=== PATIENT | female | born 1955 | race Caucasian/White ===

== ENCOUNTER 2021-03-04 21:57 | Observation (INO) ==
[2021-03-04] MEDS ORDERED: LORazepam 2 MG/ML VIAL IV ONE (22:12)
[2021-03-04] MEDS ORDERED: ONDANSETRON 4 MG/2 ML VIAL IV ONE (22:21)
--- NOTE | 2021-03-04 22:23 | Emergency Department Note ---
HPI General Chief complaint: Seizure Stated complaint: seizure Time Seen by Provider: 03/04/21 22:06 Source: EMS Mode of arrival: ambulatory Limitations: no limitations History of Present Illness HPI Narrative: Narrative: Patient presents emergency department for evaluation of seizure-like activity. Family reported to EMS that the patient had 5 minutes of seizure-like activity. There is no further description provided by EMS. She appeared postictal on EMS arrival. On arrival here she is complaining of nausea . She does not remember what happened. I do not see prior history of seizure in her electronic medical record. Recently quit smoking. No other complaints. Related Data Home Medications Medication Instructions Recorded Confirmed furosemide 20 mg tablet 20 mg PO QDAY 11/11/20 03/05/21 oxybutynin chloride 5 mg tablet 5 mg PO BID 11/11/20 03/05/21 omeprazole 40 mg capsule,delayed 40 mg PO QDAY 12/20/20 03/05/21 release potassium chloride 10 mEq 10 meq PO QDAY 12/20/20 03/05/21 capsule,extended release aripiprazole 10 mg PO QDAY 03/05/21 03/05/21 duloxetine 60 mg PO BID 03/05/21 03/05/21 oxcarbazepine 300 mg PO BID 03/05/21 03/05/21 torsemide 10 mg PO DAILY 03/05/21 03/05/21 Previous Rx's Medication Instructions Recorded trazodone 150 mg tablet See Rx Instructions .ROUTE 12/20/20 .COMPLEX #1 tab oxcarbazepine 300 mg tablet 300 mg PO BID #60 tab 02/22/21 Allergies Allergy/AdvReac Type Severity Reaction Status Date / Time codeine Allergy Intermediate Itching Verified 03/04/21 22:05 Donepezil Allergy Unknown Unknown Verified 03/04/21 22:05 Sulfa (Sulfonamide AdvReac Intermediate Nausea Verified 03/04/21 22:05 Antibiotics) tape AdvReac Mild Itching Uncoded 11/29/20 13:03 Review of Systems ROS ROS Narrative: Narrative: As above, all other systems reviewed and negative. PFSH Narrative Patient History Narrative: Narrative: Reviewed Medical/Surgical/Family History All Active Problems (Updated 03/05/21 @ 00:45 by Demetrius Hickman MD) Mitral valve prolapse (Chronic) Gastroenteritis (Chronic) Acute vestibular neuronitis (Chronic) Gastroenteritis (Chronic) Acute hypokalemia (Chronic) Fibromyalgia (Chronic) Diverticulitis (Chronic) GERD (gastroesophageal reflux disease) (Chronic) Neck pain (Chronic) Back pain (Chronic) Dementia (Chronic) PNA (pneumonia) (Chronic) Hypercholesterolemia (Chronic) Hypokalemia (Chronic) PTSD (post-traumatic stress disorder) (Chronic) Depressive disorder (Chronic) Migraine (Chronic) Hypertensive disorder (Chronic) Gastric ulcer (Chronic) Joint pain (Chronic) Chronic back pain (Chronic) Vertigo (Chronic) Forgetfulness (Chronic) Chronically ill (Chronic) Depression with anxiety (Chronic) High risk medication use (Chronic) Abnormal mammogram (Chronic) Cervical radiculopathy (Chronic) Alcohol use disorder, mild, in sustained remission, abuse (Acute) Generalized anxiety disorder (Acute) Major depression, recurrent, chronic (Acute) Tobacco use disorder (Acute) Cannabis use disorder, moderate, dependence (Acute) Mood disorder (Acute) Sedative hypnotic or anxiolytic dependence (Acute) PTSD (post-traumatic stress disorder) (Acute) Dawson's esophagus (Acute) Observed seizure-like activity (Acute) Acute hypokalemia (Acute) Acute hyponatremia (Acute) Medical History Abnormal mammogram Acute hypokalemia Acute vestibular neuronitis Addiction Back pain Cervical radiculopathy Chronic back pain Chronically ill Dementia Depression with anxiety Depressive disorder Diverticulitis Fibromyalgia Forgetfulness Gastric ulcer Gastroenteritis Gastroenteritis GERD (gastroesophageal reflux disease) High risk medication use Hypercholesterolemia Hypertensive disorder Hypokalemia Joint pain Migraine Mitral valve prolapse Neck pain PNA (pneumonia) PTSD (post-traumatic stress disorder) Substance abuse Vertigo Surgical History History of cholecystectomy History of tonsillectomy and adenoidectomy Family History Sister Dementia Alcohol abuse Drug abuse Father Arthritis Lymphoma Alcohol abuse Drug abuse Mother Arthritis Alcohol abuse Drug abuse Other Cancer Social History Smoking Status: Former smoker Alcohol Intake Frequency: holiday/special occasion only Substance Use: former substance user and marijuana Exam Narrative Narrative: Narrative: General Limitations: no limitations Head Head: Present atraumatic and normocephalic Eye Eye: Present normal appearance, PERRL and EOMI ENT ENT: Present normal exam and other (Does look like she bit her tongue superficially left anterior.) Neck Neck: Present normal inspection Respiratory Respiratory: Absent respiratory distress Extremities Extremities: Present normal inspection Neurological Neurological: Present alert, oriented X3 and CN II-XII intact; Absent motor sensory deficit Psychiatric Psychiatric: Present normal affect Skin Skin: Present warm (WNL) and dry Course Vital Signs Vital signs: Vital Signs Temperature 98.0 F 03/04/21 21:58 Pulse Rate 102 H 03/04/21 21:58 Respiratory Rate 25 H 03/04/21 21:58 Blood Pressure 147/84 03/04/21 21:58 Pulse Oximetry (%) 99 03/04/21 21:58 Temperature 98.0 F 03/04/21 21:58 Pulse Rate 84 03/05/21 01:00 Respiratory Rate 23 H 03/05/21 01:00 Blood Pressure 128/74 03/05/21 01:00 Pulse Oximetry (%) 97 03/05/21 01:00 [facility] MDM Narrative Medical decision making narrative: Narrative:Patient's family later came to the emergency department and report 5-minute episode of witnessed generalized tonic- clonic activity with postictal appearance afterwards. They confirm that the patient has had no prior seizure history. Patient is more awake and alert now and she reports that right after she had seizures as an but no adult seizures. She complained of neck pain she states she has arthritis in her neck and requested medication for this and she is given Tylenol. She was medicated with Ativan. CT brain is read by radiology showed no acute pathology. Patient is given potassium. I spoke with the on-call hospitalist. Case reviewed in detail over phone. Hospitalist would like the patient placed on normal saline 100 mL an hour. She received a 500 mL fluid bolus in the emergency department. Hospitalist would also like the patient to receive 40 M EQ's potassium IV and 40 M EQ's orally. Discussed findings with the patient and significant other. Their questions were answered. They are agreeable with the plan. Lab Data Result diagrams: 03/04/21 22:27 03/04/21 22:27 Labs: Lab Results 03/04/21 03/04/21 03/04/21 Range/Units 22:27 22:27 22:32 WBC 10.5 (4.5-11.0) K/mcL RBC 4.43 (4.00-5.20) M/mcL Hgb 13.5 (12.0-15.0) g/dL Hct 36.7 (36.0-48.0) % MCV 82.8 (80.0-100.0) fL MCH 30.5 (26.0-34.0) pg MCHC 36.8 H (31.0-36.0) g/dL RDW 13.0 (11.5-14.5) % Plt Count 445 H (140-440) K/mcL MPV 9.3 (7.4-10.4) fL Neut % (Auto) 74.0 (38.0-78.0) % Lymph % (Auto) 15.5 (15.0-49.0) % [place] % (Auto) 10.0 (1.0-12.0) % Eos % (Auto) 0.1 (0.0-7.0) % Baso % (Auto) 0.4 (0.0-2.0) % Lymph # (Auto) 1.62 (1.50-4.80) K/mcL [place] # (Auto) 1.05 H (0.10-0.90) K/mcL Eos # (Auto) 0.01 (0.00-0.70) K/mcL Baso # (Auto) 0.04 (0.00-0.20) K/mcL Absolute Neutrophils 7.73 (1.80-8.00) K/mcL Sodium 116 L* (133-145) mmol/L Potassium 2.4 L* (3.3-5.1) mmol/L Chloride 73 L (96-108) mmol/L Carbon Dioxide 18 L (22-30) mmol/L Anion Gap 25.0 H (8.0-16.0) BUN 5 L (8-23) mg/dL Creatinine 0.9 (0.6-1.1) mg/dL GFR Calculation 68 Glucose 169 H (70-105) mg/dL Calcium 9.8 (8.6-10.4) mg/dL Total Bilirubin 0.4 (0.1-1.0) mg/dL AST 16 (<32) U/L ALT 19 (<40) U/L Alkaline Phosphatase 69 (39-117) U/L Total Protein 7.1 (5.9-8.4) gm/dL Albumin 4.5 (3.2-5.2) gm/dL Globulin 2.6 (2.2-3.7) gm/dL Albumin/Globulin Ratio 1.7 (1.0-2.3) Prolactin 10.3 (4.8-23.3) ng/mL Ethyl Alcohol < 0.010 (<0.010) gm/dL ED POC Tests ED POC Tests: RYANN - SARS Antigen Negative Discharge Plan Patient/Caregiver Discharge Instructions Pt seen by PURCHASING SPECIALIST/PA only: No Clinical Impression: Observed seizure-like activity, Acute hypokalemia, Acute hyponatremia Patient Disposition: Xfer As Inpt ([facility]) Condition: Undetermined Follow up with: Humberto Dalton MD [Primary Care Provider] - Prescriptions: No Action omeprazole 40 mg capsule,delayed release(DR/EC) 40 mg PO QDAY RF: 0 potassium chloride 10 mEq capsule, extended release 10 meq PO QDAY RF: 0 trazodone 150 mg tablet See Rx Instructions .ROUTE .COMPLEX Qty: 1 RF: 0 oxcarbazepine [Trileptal] 300 mg tablet 300 mg PO BID Qty: 60 RF: 0 furosemide 20 mg tablet 20 mg PO QDAY RF: 0 oxybutynin chloride 5 mg tablet 5 mg PO BID RF: 0 torsemide 10 mg PO DAILY RF: 0 duloxetine 60 mg capsule,delayed release(DR/EC) 60 mg PO BID RF: 0 oxcarbazepine 300 mg Tablet 300 mg PO BID RF: 0 aripiprazole 10 mg Tablet 10 mg PO QDAY RF: 0
[2021-03-04] MEDS ORDERED: ONDANSETRON 4 MG/2 ML VIAL ONE (22:25)
[2021-03-04] MEDS ORDERED: ACETAMINOPHEN 1,000 MG/100 ML BAG IV ONE (23:06)
[2021-03-04 23:27] LABS: Basophils # (Auto) 0.04 K/mcL (0.00-0.20); Basophils % (Auto) 0.4 % (0.0-2.0); Eosinophils # (Auto) 0.01 K/mcL (0.00-0.70); Eosinophils % (Auto) 0.1 % (0.0-7.0); Hematocrit 36.7 % (36.0-48.0); Hemoglobin 13.5 g/dL (12.0-15.0); Lymphocytes # (Auto) 1.62 K/mcL (1.50-4.80); Lymphocytes % (Auto) 15.5 % (15.0-49.0); Mean Cell Volume 82.8 fL (80.0-100.0); Mean Corpuscular HGB Conc 36.8 g/dL (31.0-36.0); Mean Platelet Volume 9.3 fL (7.4-10.4); Monocytes # (Auto) 1.05 K/mcL (0.10-0.90); Platelet Count 445 K/mcL (140-440); RBC 4.43 M/mcL (4.00-5.20); WBC 10.5 K/mcL (4.5-11.0)
[2021-03-04 23:51] LABS: Alcohol, Blood < 10.0 mg/dL; Alcohol,Blood < 0.010 gm/dL (<0.010)
[2021-03-04 23:57] LABS: Prolactin 10.3 ng/mL (4.8-23.3)
[2021-03-05 00:08] LABS: ALT/SGPT 19 U/L (<40); AST/SGOT 16 U/L (<32); Albumin 4.5 gm/dL (3.2-5.2); Albumin/Globulin Ratio 1.7 (1.0-2.3); Alkaline Phosphatase 69 U/L (39-117); Bilirubin,Total 0.4 mg/dL (0.1-1.0); Blood Urea Nitrogen 5 mg/dL (8-23); Calcium 9.8 mg/dL (8.6-10.4); Carbon Dioxide 18 mmol/L (22-30); Chloride 73 mmol/L (96-108); Globulin 2.6 gm/dL (2.2-3.7); Glomerular Filtration Rate 68; Glucose 169 mg/dL (70-105)
[2021-03-05] MEDS ORDERED: POTASSIUM CHLORIDE 20 MEQ in DEXTROSE 5% IN WATER 250 ML IV ONE ×2 (00:11→00:45)
[2021-03-05] MEDS ORDERED: 0.9 % SODIUM CHLORIDE 500 ML IV ONE (00:11)
[2021-03-05] MEDS ORDERED: ACETAMINOPHEN 650 MG/65 ML BAG IV PRN (00:35)
[2021-03-05] MEDS ORDERED: ONDANSETRON 4 MG/2 ML VIAL IV PRN ×2 (00:37→09:42)
[2021-03-05] MEDS ORDERED: POTASSIUM CHLORIDE 20 MEQ PACKET PO ONE (00:45)
[2021-03-05] MEDS ORDERED: 0.9 % SODIUM CHLORIDE 1,000 ML IV SCH ×2 (00:45→01:00)
[2021-03-05] MEDS ORDERED: POTASSIUM CHLORIDE 20 MEQ TABLET PO ONE (00:48)
[2021-03-05] MEDS ORDERED: NICOTINE 14 MG PATCH TOPICAL ONE (00:59)
[2021-03-05] MEDS ORDERED: POTASSIUM CHLORIDE 20 MEQ/10 ML VIAL IV ONE ×2 (02:57→02:58)
[2021-03-05 03:20] LABS: Amphetamine Screen,Urine None detected; Barbiturate Screen,Urine None detected; Benzodiazepines Screen,Urine None detected; Cannabinoid Screen,Urine Suspect Positive; Cocaine Screen,Urine None detected; Opiate Screen,Urine None detected; Oxycodone, Urine Screen None detected; Phencyclidine Screen,Urine None detected
--- NOTE | 2021-03-05 05:38 | Cat Scan Report ---
CLINICAL INFORMATION: Seizure COMPARISON: None. TECHNIQUE: 2.5 mm helical slices were obtained in the skull base to vertex. Following reconstruction, axial reformatted images were reviewed at bone and parenchymal windows. The exam was performed using radiation dose optimization techniques including, but not limited to, automated exposure control, adjustment of the mA and/or kV according to patient size and use of iterative reconstruction technique. FINDINGS: The ventricles, sulci, fissures, and cisterns are symmetrically enlarged compatible with mild atrophy - slightly more than expected for age. No extra-axial fluid collection appreciated. A group of clumped calcifications in the lentiform nuclei region bilaterally are almost certainly physiologic. Mild chronic ischemic changes in the deep cerebral white matter slightly more than expected for age.. No intracerebral hemorrhage, mass effect or edema. Bone windows show no osseous abnormality. IMPRESSION: Mild atrophy with chronic ischemic changes in the cerebral white matter slightly more than typically seen in this age group. Physiologic calcification of basal ganglia regions bilaterally. No intracerebral hemorrhage or other acute finding. Interpreted and Authenticated by: Deep Ramirez 03/05/21
[2021-03-05 06:47] LABS: Basophils # (Auto) 0.03 K/mcL (0.00-0.20); Basophils % (Auto) 0.3 % (0.0-2.0); Eosinophils # (Auto) 0.02 K/mcL (0.00-0.70); Eosinophils % (Auto) 0.2 % (0.0-7.0); Hematocrit 35.4 % (36.0-48.0); Hemoglobin 12.4 g/dL (12.0-15.0); Lymphocytes # (Auto) 2.21 K/mcL (1.50-4.80); Lymphocytes % (Auto) 19.4 % (15.0-49.0); Mean Cell Volume 83.9 fL (80.0-100.0); Mean Platelet Volume 9.1 fL (7.4-10.4); Monocytes # (Auto) 1.15 K/mcL (0.10-0.90); Monocytes % (Auto) 10.1 % (1.0-12.0); Platelet Count 390 K/mcL (140-440); RBC 4.22 M/mcL (4.00-5.20); WBC 11.4 K/mcL (4.5-11.0)
[2021-03-05 07:31] LABS: ALT/SGPT 17 U/L (<40); AST/SGOT 16 U/L (<32); Albumin 3.9 gm/dL (3.2-5.2); Albumin/Globulin Ratio 1.8 (1.0-2.3); Alkaline Phosphatase 62 U/L (39-117); Bilirubin,Direct < 0.2 mg/dL (0-0.3); Bilirubin,Total 0.3 mg/dL (0.1-1.0); Blood Urea Nitrogen 4 mg/dL (8-23); Calcium 8.5 mg/dL (8.6-10.4); Carbon Dioxide 27 mmol/L (22-30); Chloride 85 mmol/L (96-108); Globulin 2.2 gm/dL (2.2-3.7); Glomerular Filtration Rate 102; Glucose 91 mg/dL (70-105); Lactate Dehydrogenase 216 U/L (135-225); Phosphorous 2.9 mg/dL (2.5-4.5); Triglycerides 95 mg/dL (<150)
[2021-03-05] MEDS ORDERED: ONDANSETRON 4 MG ODT TABLET SL PRN (09:42)
[2021-03-05] MEDS ORDERED: ZOLPIDEM 5 MG TABLET PO PRN (09:42)
--- NOTE | 2021-03-05 09:46 | Internal Med History&Physical ---
HPI History of Present Illness Patient information: Note initiated : 03/05/21 at 9:46 am Service Date, if different from initiated Date: Patient: Luz Jara 65 y/o F admitted on 03/05/21 for seizure. Chief Complaint: Seizure activity History of present illness: Ms. Jara is a 65 year old female brought to emergency room for evaluation of seizure activity which was witnessed by her family members. Patient denies seizure disorder however she is on gabapentin and oxcarbazepine. She said she ran out of gabapentin. Yesterday afternoon patient had shakiness of the body and what seems to be interpreted by her family member at seizure like activities. Family reported to EMS that the patient had 5 minutes of seizure-like activity. There is no further description provided by EMS. She appeared postictal on EMS arrival. In the emergency room patient was awake alert oriented x3 and complaining of nausea. She denies a history of seizure disorder. Patient drinks once a month and 12 drinks each time. Her last drink was 2 weeks ago. In emergency room she found to have sodium of 116 and potassium of 2.8. She denies nausea vomiting diarrhea. She is on diuretics. Review of Systems All systems: reviewed and no additional remarkable complaints except as stated Review of systems: Except as documented all systems reviewed and negative PFSH PFSH All Active Problems Mitral valve prolapse (Chronic) Gastroenteritis (Chronic) Acute vestibular neuronitis (Chronic) Gastroenteritis (Chronic) Acute hypokalemia (Chronic) Fibromyalgia (Chronic) Diverticulitis (Chronic) GERD (gastroesophageal reflux disease) (Chronic) Neck pain (Chronic) Back pain (Chronic) Dementia (Chronic) PNA (pneumonia) (Chronic) Hypercholesterolemia (Chronic) Hypokalemia (Chronic) PTSD (post-traumatic stress disorder) (Chronic) Depressive disorder (Chronic) Migraine (Chronic) Hypertensive disorder (Chronic) Gastric ulcer (Chronic) Joint pain (Chronic) Chronic back pain (Chronic) Vertigo (Chronic) Forgetfulness (Chronic) Chronically ill (Chronic) Depression with anxiety (Chronic) High risk medication use (Chronic) Abnormal mammogram (Chronic) Cervical radiculopathy (Chronic) Alcohol use disorder, mild, in sustained remission, abuse (Acute) Generalized anxiety disorder (Acute) Major depression, recurrent, chronic (Acute) Tobacco use disorder (Acute) Cannabis use disorder, moderate, dependence (Acute) Mood disorder (Acute) Sedative hypnotic or anxiolytic dependence (Acute) PTSD (post-traumatic stress disorder) (Acute) Dawson's esophagus (Acute) Observed seizure-like activity (Acute) Acute hypokalemia (Acute) Acute hyponatremia (Acute) Medical History Abnormal mammogram Acute hypokalemia Acute vestibular neuronitis Addiction Back pain Cervical radiculopathy Chronic back pain Chronically ill Dementia Depression with anxiety Depressive disorder Diverticulitis Fibromyalgia Forgetfulness Gastric ulcer Gastroenteritis Gastroenteritis GERD (gastroesophageal reflux disease) High risk medication use Hypercholesterolemia Hypertensive disorder Hypokalemia Joint pain Migraine Mitral valve prolapse Neck pain PNA (pneumonia) PTSD (post-traumatic stress disorder) Substance abuse Vertigo Surgical History History of cholecystectomy History of tonsillectomy and adenoidectomy Family History Sister Dementia Alcohol abuse Drug abuse Father Arthritis Lymphoma Alcohol abuse Drug abuse Mother Arthritis Alcohol abuse Drug abuse Other Cancer Social History marital status: education level: college occupational status: retired smoking status: Former smoker quit date: 02/08/21 alcohol intake frequency: holiday/special occasion only substance use type: former substance user and marijuana additional history: 5 children MEDS/ALLERGIES Home Medications and Allergies Home Medications Medication Instructions Recorded Confirmed Type furosemide 20 mg tablet 20 mg PO QDAY 11/11/20 03/05/21 History oxybutynin chloride 5 mg tablet 5 mg PO BID 11/11/20 03/05/21 History omeprazole 40 mg capsule,delayed 40 mg PO QDAY 12/20/20 03/05/21 History release potassium chloride 10 mEq 10 meq PO QDAY 12/20/20 03/05/21 History capsule,extended release aripiprazole 10 mg PO QDAY 03/05/21 03/05/21 History duloxetine 60 mg PO BID 03/05/21 03/05/21 History oxcarbazepine 300 mg PO BID 03/05/21 03/05/21 History torsemide 10 mg PO DAILY 03/05/21 03/05/21 History trazodone See Rx Instructions .ROUTE .COMPLEX 03/05/21 03/05/21 History Allergies Allergy/AdvReac Type Severity Reaction Status Date / Time codeine Allergy Intermediate Itching Verified 03/04/21 22:05 Donepezil Allergy Unknown Unknown Verified 03/04/21 22:05 Sulfa (Sulfonamide AdvReac Intermediate Nausea Verified 03/04/21 22:05 Antibiotics) tape AdvReac Mild Itching Uncoded 11/29/20 13:03 EXAM Constitutional Vitals: Temp Pulse Resp BP Pulse Ox 98.3 F 80 17 125/73 96 03/05/21 08:01 03/05/21 08:01 03/05/21 08:01 03/05/21 08:01 03/05/21 08:01 General appearance: average body habitus (BMI 30. Patient is comfortable talks full sentences alert oriented X4), cooperative and no acute distress Head Head exam: Present atraumatic, normal inspection and normocephalic Eye Eye exam: Present EOMI, normal appearance and PERRL Neck Neck exam: Present full ROM and normal inspection Respiratory Respiratory exam: Present normal respiratory exam and CTAB Cardiovascular Cardiovascular exam: Present normal rate and rhythm, +S1 and +S2; Absent diastolic murmur and systolic murmur GI/Abdominal GI/Abdominal exam: Present normal bowel sounds and soft; Absent hernia, mass, rebound and tenderness Extremities Exam Extremities exam: Present full ROM, normal capillary refill and normal inspection; Absent calf tenderness and joint swelling Back Exam Back exam: Present full ROM Neurological Exam Neurological exam: Present alert, CN II-XII intact, oriented X3 and reflexes normal Psychiatric Psychiatric exam: Present normal affect and normal mood Skin Skin exam: Present dry, normal color and warm DATA Data Completed and Pending Labs: Labs from last 24 hours 03/05/21 03/05/21 03/04/21 05:16 05:16 22:32 WBC 11.4 H RBC 4.22 Hgb 12.4 Hct 35.4 L MCV 83.9 MCH 29.4 MCHC 35.0 RDW 13.0 Plt Count 390 MPV 9.1 Neut % (Auto) 70.0 Lymph % (Auto) 19.4 [place] % (Auto) 10.1 Eos % (Auto) 0.2 Baso % (Auto) 0.3 Lymph # (Auto) 2.21 [place] # (Auto) 1.15 H Eos # (Auto) 0.02 Baso # (Auto) 0.03 Absolute Neutrophils 7.97 Sodium 123 L Potassium 2.7 L* Chloride 85 L Carbon Dioxide 27 Anion Gap 11.0 BUN 4 L Creatinine 0.5 L GFR Calculation 102 Glucose 91 Uric Acid 4.0 Calcium 8.5 L Phosphorus 2.9 Magnesium 2.1 Total Bilirubin 0.3 Direct Bilirubin < 0.2 GGT 27 AST 16 ALT 17 Alkaline Phosphatase 62 Lactate Dehydrogenase 216 Total Protein 6.1 Albumin 3.9 Globulin 2.2 Albumin/Globulin Ratio 1.8 Triglycerides 95 Prolactin Urine Opiates Screen Ur Opiates Confirm Ur Oxycodone Screen Urine Methadone Screen Ur Methadone Confirm Ur Barbiturates Screen Ur Barbiturate Confirm Ur Phencyclidine Scrn Urine PCP Confirm Ur Amphetamines Screen U Amphetamines Confirm U Benzodiazepines Scrn U Benzodiazepine Confm Urine Cocaine Screen Urine Cocaine Confirm U Cannabinoids Confirm U Marijuana (THC) Screen Ethyl Alcohol < 0.010 03/04/21 03/04/21 03/04/21 22:27 22:27 02:15 WBC 10.5 RBC 4.43 Hgb 13.5 Hct 36.7 MCV 82.8 MCH 30.5 MCHC 36.8 H RDW 13.0 Plt Count 445 H MPV 9.3 Neut % (Auto) 74.0 Lymph % (Auto) 15.5 Spencer % (Auto) 10.0 Eos % (Auto) 0.1 Baso % (Auto) 0.4 Lymph # (Auto) 1.62 Spencer # (Auto) 1.05 H Eos # (Auto) 0.01 Baso # (Auto) 0.04 Absolute Neutrophils 7.73 Sodium 116 L* Potassium 2.4 L* Chloride 73 L Carbon Dioxide 18 L Anion Gap 25.0 H BUN 5 L Creatinine 0.9 GFR Calculation 68 Glucose 169 H Uric Acid Calcium 9.8 Phosphorus Magnesium Total Bilirubin 0.4 Direct Bilirubin GGT AST 16 ALT 19 Alkaline Phosphatase 69 Lactate Dehydrogenase Total Protein 7.1 Albumin 4.5 Globulin 2.6 Albumin/Globulin Ratio 1.7 Triglycerides Prolactin 10.3 Urine Opiates Screen None detected Ur Opiates Confirm TNP Ur Oxycodone Screen None detected Urine Methadone Screen None detected Ur Methadone Confirm TNP Ur Barbiturates Screen None detected Ur Barbiturate Confirm TNP Ur Phencyclidine Scrn None detected Urine PCP Confirm TNP Ur Amphetamines Screen None detected U Amphetamines Confirm TNP U Benzodiazepines Scrn None detected U Benzodiazepine Confm TNP Urine Cocaine Screen None detected Urine Cocaine Confirm TNP U Cannabinoids Confirm Pending U Marijuana (THC) Screen Suspect positive A Ethyl Alcohol A/P Narrative A/P Narrative: 65 years old pleasant female who drinks very socially with no known history of seizure disorder brought to emergency room with seizure-like activity per family member. #Seizure-like activity per family member with post ictal -No known history of seizure disorder. -Patient is on gabapentin and oxcarbazepine. I do not know the indication of this treatment and patient is unaware of that as well -Per patient she ran out of gabapentin for 1-2 days which could decrease threshold for seizure. -Patient also have serum sodium 116 and potassium 2.6 which can cause seizure -Seizure precaution. Patient is EEG which we do not have in our facility. CT scan of the head normal -Continue home dose gabapentin and oxcarbazepine. If patient develops seizure activity will start on Keppra #Profound hyponatremia with serum sodium 116. Hypovolemic and polydipsia. Urine SG 1.003 -Patient is on Lasix/furosemide and drinks significant amount of free water daily -Since patient is awake alert oriented x3 no indication for 3% NS -Continue NS at 125 and follow serum sodium. Avoid overcorrection. Free water restriction 1000 cc a day #Profound hypokalemia with serum potassium 2.6 -Normal magnesium. Replace and follow BMP #History of alcohol use. -Patient reports drinking very occasionally likely 12 drinks a month DVT PPX: Lovenox 40mg daily Code Status : Full code Disposition: Inpatient Plan of care discussed with patient and RN Time Spent With Patient Time: Total time spent is greater than 50% in coordination of care (as documented) at patient's floor/unit and/or counseling patient:
[2021-03-05] MEDS ORDERED: ARIPIPRAZOLE 5 MG TABLET PO ONE (10:25)
[2021-03-05] MEDS ORDERED: OXYBUTYNIN CHLORIDE 5 MG TABLET PO ONE (10:26)
[2021-03-05] MEDS: POTASSIUM CHLORIDE 20 MEQ in DEXTROSE 5% IN WATER 250 ML IV SCH ×2 (10:34→15:12)
[2021-03-05] MEDS: ENOXAPARIN 40 MG/0.4 ML SYRINGE SQ SCH (10:36)
[2021-03-05] MEDS: ACETAMINOPHEN 325 MG TABLET PO PRN ×2 (10:47→20:33)
[2021-03-05] MEDS: OMEPRAZOLE 20 MG CAPSULE PO SCH (10:48)
[2021-03-05] MEDS: POTASSIUM CHLORIDE 20 MEQ TABLET PO SCH ×2 (10:50→17:33)
[2021-03-05] MEDS: 0.9 % SODIUM CHLORIDE 1,000 ML IV SCH ×4 (11:11→21:22)
[2021-03-05] MEDS: IBUPROFEN 200 MG TABLET PO PRN ×2 (12:38→20:33)
[2021-03-05] MEDS: 0.9 % SODIUM CHLORIDE 10 ML SYRINGE IV SCH ×2 (12:54→20:34)
--- NOTE | 2021-03-05 17:17 | EKG ---
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 Measurements Intervals [place] Rate: 79 P: 63 SC: 170 QRS: -1 QRSD: 95 T: 71 QT: 410 QTc: 471 Interpretive Statements NO PRIOR TRACING FOR COMPARISON Sinus rhythm Anteroseptal infarct, old ABNORMAL ECG Electronically Signed On 03-05-2021 17:16:31 PDT by Prateek Lr M.D. /store/[id number]
[2021-03-05] MEDS: OXYBUTYNIN CHLORIDE 5 MG TABLET PO SCH (20:34)
[2021-03-05] MEDS ORDERED: traZODone HCL 150 MG TABLET PO SCH (21:00)
[2021-03-06] MEDS: 0.9 % SODIUM CHLORIDE 1,000 ML IV SCH ×2 (00:33→05:16)
[2021-03-06] MEDS: ACETAMINOPHEN 325 MG TABLET PO PRN (04:32)
[2021-03-06] MEDS: 0.9 % SODIUM CHLORIDE 10 ML SYRINGE IV SCH (05:50)
[2021-03-06 06:27] LABS: Basophils # (Auto) 0.05 K/mcL (0.00-0.20); Basophils % (Auto) 0.7 % (0.0-2.0); Eosinophils # (Auto) 0.09 K/mcL (0.00-0.70); Eosinophils % (Auto) 1.3 % (0.0-7.0); Hematocrit 35.5 % (36.0-48.0); Hemoglobin 11.8 g/dL (12.0-15.0); Lymphocytes # (Auto) 2.96 K/mcL (1.50-4.80); Lymphocytes % (Auto) 43.7 % (15.0-49.0); Mean Cell Volume 88.8 fL (80.0-100.0); Mean Corpuscular HGB Conc 33.2 g/dL (31.0-36.0); Mean Platelet Volume 9.2 fL (7.4-10.4); Monocytes # (Auto) 0.64 K/mcL (0.10-0.90); Monocytes % (Auto) 9.4 % (1.0-12.0); Neutrophils % (Auto) 44.9 % (38.0-78.0); Platelet Count 340 K/mcL (140-440); WBC 6.8 K/mcL (4.5-11.0)
[2021-03-06 07:04] LABS: ALT/SGPT 15 U/L (<40); AST/SGOT 14 U/L (<32); Albumin 3.4 gm/dL (3.2-5.2); Albumin/Globulin Ratio 1.6 (1.0-2.3); Alkaline Phosphatase 51 U/L (39-117); Bilirubin,Direct < 0.2 mg/dL (0-0.3); Bilirubin,Total 0.2 mg/dL (0.1-1.0); Blood Urea Nitrogen 5 mg/dL (8-23); Calcium 8.5 mg/dL (8.6-10.4); Carbon Dioxide 23 mmol/L (22-30); Chloride 102 mmol/L (96-108); Globulin 2.1 gm/dL (2.2-3.7); Glomerular Filtration Rate 102; Glucose 89 mg/dL (70-105); Lactate Dehydrogenase 189 U/L (135-225); Phosphorous 2.1 mg/dL (2.5-4.5); Triglycerides 139 mg/dL (<150); Uric Acid 2.3 mg/dL (2.5-8.0)
[2021-03-06] MEDS ORDERED: OMEPRAZOLE 20 MG CAPSULE PO SCH (07:30)
[2021-03-06] MEDS: OMEPRAZOLE 20 MG CAPSULE PO SCH (08:08)
--- NOTE | 2021-03-06 08:20 | Discharge Summary ---
Discharge Provider Provider Patient information: Note initiated : 03/06/21 at 8:13 am Service Date, if different from initiated Date: Patient: Luz Jara 65 y/o F admitted on 03/05/21 for seizure. Chief Complaint: Seizure like activities. Low Na/K Date of admission: 03/05/21 02:23 Discharge date: 03/06/21 Primary care physician: Humberto Dalton MD Consults: 03/05/21 Consult to Physician [CONS] Stat Comment: Consulting Provider: Akash Dinh Reason For Exam: Physician to Consult Discharge Meds Discharge Medications Home Medications oxybutynin chloride 5 mg tablet 5 mg PO BID 11/11/20 [History Confirmed 03/05/21 Last Taken 03/03/21] omeprazole 40 mg capsule,delayed release 40 mg PO QDAY 12/20/20 [History Confirmed 03/05/21 Last Taken 03/04/21] aripiprazole 10 mg PO QDAY 03/05/21 [History Confirmed 03/05/21 Last Taken 03/04/21] duloxetine 60 mg PO BID 03/05/21 [History Confirmed 03/05/21 Last Taken 03/04/21] oxcarbazepine 300 mg PO BID 03/05/21 [History Confirmed 03/05/21 Last Taken 03/03/21] trazodone See Rx Instructions .ROUTE .COMPLEX 03/05/21 [History Confirmed 03/05/21 Last Taken 03/04/21] COURSE Hospital Course Hospital course: 65 years old pleasant female who drinks very socially with no known history of seizure disorder brought to emergency room with seizure-like activity per family member. Her hospital course is as following. #Seizure-like activity per family member with post ictal. No SZ activities observed while in the hospital -No known history of seizure disorder. -Patient is on Gabapentin and oxcarbazepine. I do not know the indication of this treatment and patient is unaware of that as well. Continue same dose and outpatient follow-up -Per patient she ran out of gabapentin for 1-2 days which could decrease threshold for seizure. -Patient also had serum sodium 116 and potassium 2.6 on admission which can cause seizure - Th Patient needs EEG which we do not have in our facility. Consider outpatient EEG. CT scan of the head normal -Resumed home dose of Gabapentin and oxcarbazepine. Remained hemodynamically stable. No seizure activity observed. A & O x 4. - Dc home with OP follow with PCP. #Profound hyponatremia with serum sodium 116. Hypovolemic and polydipsia. Urine SG 1.003 -Patient is on Lasix/furosemide and drinks significant amount of free water daily -Since patient was awake alert oriented x3 no indication for 3% NS -Rxed with NS at 125 and Free water restriction 3000 cc a day, other fluid ok. - S Na improved to 132 over 36 hours. K is 4. 6. EKG no acute finding - Dced Lasix/torsemide. I was unable to find a strong indication for this medication. Outpatient follow-up with PCP #Profound hypokalemia with serum potassium 2.6. Resolved with replacement. Dc K is 4.6 -Normal magnesium. Discontinued Lasix/torsemide as above #History of alcohol use. -Patient reports drinking very occasionally likely 12 drinks a month Disposition: Patient discharged home Condition on discharge: Hemodynamically stable. Tolerated p.o. Discharge activity: As tolerated Discharge diet: Healthy, low-fat. Free water restriction 3000 cc a day. Other fluids okay Discharge medication: See med reconciliation form Discharge follow-up: Primary care physician within 1 week for post hospital follow-up. Check BMP Discharge diagnosis: Hyponatremia, hypokalemia Time Spent with Patient Time attestation: Total time spent providing and/or coordinating discharge services: Time spent: Greater than 30 minutes (33 minutes) EXAM Constitutional Vitals: Temp Pulse Resp BP Pulse Ox 97.9 F 75 22 144/79 98 03/06/21 08:01 03/06/21 08:04 03/06/21 08:04 03/06/21 08:01 03/06/21 08:04 Discharge Data Data Completed and Pending Labs on day of discharge: Labs from last 24 hours 03/06/21 03/06/21 04:57 04:56 WBC 6.8 RBC 4.00 Hgb 11.8 L Hct 35.5 L MCV 88.8 MCH 29.5 MCHC 33.2 RDW 14.0 Plt Count 340 MPV 9.2 Neut % (Auto) 44.9 Lymph % (Auto) 43.7 Luce % (Auto) 9.4 Eos % (Auto) 1.3 Baso % (Auto) 0.7 Lymph # (Auto) 2.96 [place] # (Auto) 0.64 Eos # (Auto) 0.09 Baso # (Auto) 0.05 Absolute Neutrophils 3.04 Sodium 132 L Potassium 4.6 Chloride 102 Carbon Dioxide 23 Anion Gap 7.0 L BUN 5 L Creatinine 0.5 L GFR Calculation 102 Glucose 89 Uric Acid 2.3 L Calcium 8.5 L Phosphorus 2.1 L Magnesium 2.1 Total Bilirubin 0.2 Direct Bilirubin < 0.2 GGT 24 AST 14 ALT 15 Alkaline Phosphatase 51 Lactate Dehydrogenase 189 Total Protein 5.5 L Albumin 3.4 Globulin 2.1 L Albumin/Globulin Ratio 1.6 Triglycerides 139 Discharge Plan Patient/Caregiver Discharge Instructions Activity: increase activity as tolerated Diet: Regular Diet Prescriptions: Continued omeprazole 40 mg capsule,delayed release(DR/EC) 40 mg PO QDAY RF: 0 oxybutynin chloride 5 mg tablet 5 mg PO BID RF: 0 duloxetine 60 mg capsule,delayed release(DR/EC) 60 mg PO BID RF: 0 oxcarbazepine 300 mg Tablet 300 mg PO BID RF: 0 aripiprazole 10 mg Tablet 10 mg PO QDAY RF: 0 trazodone 150 mg tablet See Rx Instructions .ROUTE .COMPLEX RF: 0 Discontinued potassium chloride 10 mEq capsule, extended release 10 meq PO QDAY RF: 0 furosemide 20 mg tablet 20 mg PO QDAY RF: 0 torsemide 10 mg PO DAILY RF: 0 Follow Up Plan Follow up with: Humberto Dalton MD [Primary Care Provider] - Patient Disposition: Home, Self-Care Prognosis: Undetermined Discharge Orders: Discharge Order (Routine); Ordered 03/06/21 Ordered By: Akash Dinh
[2021-03-06] MEDS: IBUPROFEN 200 MG TABLET PO PRN (08:34)
[2021-03-06] MEDS: POTASSIUM CHLORIDE 20 MEQ TABLET PO SCH (08:34)
[2021-03-06] MEDS: OXYBUTYNIN CHLORIDE 5 MG TABLET PO SCH (08:34)
[2021-03-06] MEDS: ENOXAPARIN 40 MG/0.4 ML SYRINGE SQ SCH (08:35)
[2021-03-06] MEDS ORDERED: ARIPIPRAZOLE 5 MG TABLET PO SCH (09:00)
[2021-03-13 05:31] LABS: Cannabinoid Confirmation Positive
== END 2021-03-06 10:25 | disposition home or self-care (01) ==
LOC: ED 21:57 → ICU 03-05 02:23 → INTOOBSV 03-05 02:23
PROVIDERS: ADMIT Internal Medicine; ATTEND Internal Medicine

== ENCOUNTER 2021-04-26 17:17 | Inpatient (IN) ==
[2021-04-26] MEDS ORDERED: 0.9 % SODIUM CHLORIDE 1,000 ML IV ONE (17:40)
--- NOTE | 2021-04-26 17:45 | Emergency Department Note ---
Seizure HPI General Chief Complaint: Seizure Stated Complaint: Seizure Time Seen by Provider: 04/26/21 17:24 Source: patient and family Mode of arrival: wheelchair Limitations: no limitations History of Present Illness HPI Narrative: Narrative: The patient presents with family with concern of 2 episodes today of seizure- like activity. Both lasting only a few minutes. Patient seemed confused afterwards but seems back to baseline now. Patient does not recollect the events. The patient denies any trauma from the events. Patient had similar episode a couple months ago. Patient had work-up here at that time. Head CT was negative. She was found to be hyponatremic as well as hypokalemic. Patient denies recent illness. She denies vomiting or diarrhea. She denies any focal weakness. She denies headache. Related Data Home Medications Medication Instructions Recorded Confirmed oxybutynin chloride 5 mg tablet 5 mg PO BID 11/11/20 04/24/21 omeprazole 40 mg capsule,delayed 40 mg PO QDAY 12/20/20 04/24/21 release trazodone See Rx Instructions .ROUTE .COMPLEX 03/05/21 04/24/21 Previous Rx's Medication Instructions Recorded gabapentin 300 mg capsule 300 mg PO BID #60 cap 03/16/21 duloxetine 60 mg capsule,delayed 60 mg PO BID #30 cap 04/19/21 release Allergies Allergy/AdvReac Type Severity Reaction Status Date / Time codeine Allergy Intermediate Itching Verified 04/26/21 17:19 Donepezil Allergy Unknown Unknown Verified 04/26/21 17:19 Sulfa (Sulfonamide AdvReac Intermediate Nausea Verified 04/26/21 17:19 Antibiotics) tape AdvReac Mild Itching Uncoded 11/29/20 13:03 Review of Systems ROS ROS Narrative: Narrative: All systems ED: reviewed and negative except as stated. [facility] Narrative Patient History Narrative: Narrative: Medical/Surgical/Family History All Active Problems (Updated 04/26/21 @ 21:58 by Coleman Mendoza MD) Mitral valve prolapse (Chronic) Gastroenteritis (Chronic) Acute vestibular neuronitis (Chronic) Gastroenteritis (Chronic) Acute hypokalemia (Chronic) Fibromyalgia (Chronic) Diverticulitis (Chronic) GERD (gastroesophageal reflux disease) (Chronic) Neck pain (Chronic) Back pain (Chronic) Dementia (Chronic) PNA (pneumonia) (Chronic) Hypercholesterolemia (Chronic) Hypokalemia (Chronic) PTSD (post-traumatic stress disorder) (Chronic) Depressive disorder (Chronic) Migraine (Chronic) Hypertensive disorder (Chronic) Gastric ulcer (Chronic) Joint pain (Chronic) Chronic back pain (Chronic) Vertigo (Chronic) Forgetfulness (Chronic) Chronically ill (Chronic) Depression with anxiety (Chronic) High risk medication use (Chronic) Abnormal mammogram (Chronic) Cervical radiculopathy (Chronic) Alcohol use disorder, mild, in sustained remission, abuse (Acute) Generalized anxiety disorder (Acute) Major depression, recurrent, chronic (Acute) Tobacco use disorder (Acute) Cannabis use disorder, moderate, dependence (Acute) Mood disorder (Acute) Sedative hypnotic or anxiolytic dependence (Acute) PTSD (post-traumatic stress disorder) (Acute) Dawson's esophagus (Acute) Observed seizure-like activity (Acute) Acute hypokalemia (Acute) Acute hyponatremia (Acute) Heart palpitations (Acute) Anxiety (Acute) Acute hyponatremia (Acute) Acute hypokalemia (Acute) Seizure (Acute) Medical History Abnormal mammogram Acute hypokalemia Acute vestibular neuronitis Addiction Back pain Cervical radiculopathy Chronic back pain Chronically ill Dementia Depression with anxiety Depressive disorder Diverticulitis Fibromyalgia Forgetfulness Gastric ulcer Gastroenteritis Gastroenteritis GERD (gastroesophageal reflux disease) High risk medication use Hypercholesterolemia Hypertensive disorder Hypokalemia Joint pain Migraine Mitral valve prolapse Neck pain PNA (pneumonia) PTSD (post-traumatic stress disorder) Substance abuse Vertigo Surgical History History of cholecystectomy History of tonsillectomy and adenoidectomy Family History Sister Dementia Alcohol abuse Drug abuse Father Arthritis Lymphoma Alcohol abuse Drug abuse Mother Arthritis Alcohol abuse Drug abuse Other Cancer Social History Smoking Status: Former smoker Alcohol Intake Frequency: holiday/special occasion only Substance Use: former substance user and marijuana Exam Narrative Narrative: Narrative: General Limitations: no limitations General appearance: Present alert and in no apparent distress Head Head: Present atraumatic and normal inspection Eye Eye: Present normal appearance, PERRL and EOMI ENT ENT: Present mucous membranes moist and other (No tongue laceration or abrasion) Neck Neck: Present normal inspection, full ROM and trachea midline; Absent meningismus Chest Chest: Present normal inspection and symmetric chest wall rise; Absent tenderness Respiratory Respiratory: Present normal lung sounds bilaterally; Absent respiratory distress Cardiovascular Cardiovascular: Present normal rhythm and tachycardia Adbominal Abdominal: Present soft; Absent distention and tenderness Extremities Extremities: Present normal inspection and full ROM Back Back: Present full ROM Neurological Neurological: Present alert, oriented X3 and CN II-XII intact; Absent motor sensory deficit Expanded Neurological Patient oriented to: Present person, place and time Speech: Present fluid speech CRANIAL NERVES: EOM function (II, III, IV, ): Normal, facial sensation (V): Normal, facial palsy (VII): Normal and tongue deviation (XII): Normal Motor strength - LUE: 5/5 Motor strength - RUE: 5/5 Motor strength - LLE: 5/5 Motor strength - RLE: 5/5 SENSORY EXAM UPPER EXTREMITY: Normal: light touch SENSORY EXAM LOWER EXTREMITY: Normal: light touch Coma Scale Eye Opening: Spontaneous Coma Scale Motor Response: Obeys Commands Coma Scale Verbal Response: Oriented Coma Scale Total: 15 Psychiatric Psychiatric: Present normal affect and normal mood Skin Skin: Present warm (WNL) and dry Course Reevaluation(s) Reevaluation #1: The patient had another tonic-clonic seizure lasting approximately 1 minute. She was given a dose of Ativan. Plan at this point is to load with Keppra. Time: 19:40 Reevaluation #2: I spoke to a neurologist at [facility], Dr. Florin Bangura. She said that she would recommend an MRI with and without contrast. She said that unless the patient returns to normal baseline, she would prefer this to be done as an inpatient. Plan at this point is to consult with our hospitalist to see if they would be willing to admit here to get the MRI tomorrow. If not, patient will need to be transferred. Time: 21:05 Vital Signs Vital signs: Vital Signs Temperature 97.0 F 04/26/21 17:20 Pulse Rate 106 H 04/26/21 17:20 Respiratory Rate 22 04/26/21 17:20 Blood Pressure 164/99 04/26/21 17:20 Pulse Oximetry (%) 97 04/26/21 17:20 Temperature 97.0 F 04/26/21 17:20 Pulse Rate 95 H 04/26/21 21:41 Respiratory Rate 13 04/26/21 21:41 Blood Pressure 151/87 04/26/21 21:41 Pulse Oximetry (%) 95 04/26/21 21:41 MDM MDM Narrative Medical decision making narrative: Narrative: The patient presents with what sounds like 2 small seizures this afternoon. Last time she was seen and evaluated for this, she was diagnosed with hyponatremia and hypokalemia. Plan to check CMP to ensure that there are no electrolyte abnormalities. We will give a liter of fluid. I do not think we need to reimage as she already had a negative CT. 1744 -I was called into the room as patient was having a tonic-clonic seizure. It lasted less than 1 minute. Patient is now confused again. Plan to order a milligram of Ativan as needed should the patient convulse again. 2156 -I spoke to our hospitalist, Dr. Charles. He agreed to come to the ED to evaluate for local admission Lab Data Lab results reviewed: Yes I reviewed the patient's lab results. Result diagrams: 04/26/21 17:40 04/26/21 17:40 Labs: Lab Results 04/26/21 04/26/21 04/26/21 Range/Units 17:40 17:40 17:40 WBC 10.1 (4.5-11.0) K/mcL RBC 4.46 (3.59-5.38) M/mcL Hgb 13.2 (11.2-15.7) g/dL Hct 38.7 (34.1-44.9) % MCV 86.8 (80.0-100.0) fL MCH 29.6 (26.0-34.0) pg MCHC 34.1 (31.0-36.0) g/dL RDW 12.7 (11.5-14.5) % Plt Count 361 (140-440) K/mcL MPV 9.0 (7.4-10.4) fL Neut % (Auto) 62.3 (38.0-78.0) % Lymph % (Auto) 28.3 (15.5-49.0) % [place] % (Auto) 8.6 (1.0-12.0) % Eos % (Auto) 0.3 (0.0-7.0) % Baso % (Auto) 0.5 (0.0-2.0) % Lymph # (Auto) 2.86 (1.50-4.80) K/mcL [place] # (Auto) 0.87 (0.10-0.90) K/mcL Eos # (Auto) 0.03 (0.00-0.70) K/mcL Baso # (Auto) 0.05 (0.00-0.30) K/mcL Absolute Neutrophils 6.30 (1.80-8.00) K/mcL Sodium 129 L (133-145) mmol/L Potassium 2.9 L* (3.3-5.1) mmol/L Chloride 95 L (96-108) mmol/L Carbon Dioxide 12 L (22-30) mmol/L Anion Gap 22.0 H (8.0-16.0) BUN 5 L (8-23) mg/dL Creatinine 0.7 (0.6-1.1) mg/dL GFR Calculation 92 Glucose 159 H (70-105) mg/dL Calcium 9.5 (8.6-10.4) mg/dL Total Bilirubin 0.5 (0.1-1.0) mg/dL AST 31 (<32) U/L ALT 46 H (<40) U/L Alkaline Phosphatase 78 (39-117) U/L Total Protein 6.6 (5.9-8.4) gm/dL Albumin 4.6 (3.2-5.2) gm/dL Globulin 2.0 L (2.2-3.7) gm/dL Albumin/Globulin Ratio 2.3 (1.0-2.3) Urine Color Urine Appearance (Clear) Urine pH (5.0-9.0) Ur Specific [place] (1.000-1.035) Urine Protein Urine Glucose (UA) (Negative) mg/dL Urine Ketones (Negative) mg/dL Urine Occult Blood (Negative) cristian/mcL Urine Nitrate (Negative) Urine Bilirubin (Negative) mg/dL Prot Sulfosalicylic Acd (NEGATIVE) mg/dL Urine Urobilinogen mg/dL Ur Leukocyte Esterase (Negative) /ug Urine RBC (0-3) /hpf Urine WBC (0-4) /hpf Ur Squamous Epith Cells (0-4) /hpf Urine Bacteria (0) /hpf Ur Culture Indicated? Urine Opiates Screen Ur Opiates Confirm Ur Oxycodone Screen Urine Methadone Screen Ur Methadone Confirm Ur Barbiturates Screen Ur Barbiturate Confirm Ur Phencyclidine Scrn Urine PCP Confirm Ur Amphetamines Screen U Benzodiazepines Scrn U Benzodiazepine Confm Urine Cocaine Screen Urine Cocaine Confirm U Cannabinoids Confirm U Marijuana (THC) Screen Ethyl Alcohol < 0.010 (<0.010) gm/dL 04/26/21 04/26/21 Range/Units 20:25 20:25 WBC (4.5-11.0) K/mcL RBC (3.59-5.38) M/mcL Hgb (11.2-15.7) g/dL Hct (34.1-44.9) % MCV (80.0-100.0) fL MCH (26.0-34.0) pg MCHC (31.0-36.0) g/dL RDW (11.5-14.5) % Plt Count (140-440) K/mcL MPV (7.4-10.4) fL Neut % (Auto) (38.0-78.0) % Lymph % (Auto) (15.5-49.0) % [place] % (Auto) (1.0-12.0) % Eos % (Auto) (0.0-7.0) % Baso % (Auto) (0.0-2.0) % Lymph # (Auto) (1.50-4.80) K/mcL [place] # (Auto) (0.10-0.90) K/mcL Eos # (Auto) (0.00-0.70) K/mcL Baso # (Auto) (0.00-0.30) K/mcL Absolute Neutrophils (1.80-8.00) K/mcL Sodium (133-145) mmol/L Potassium (3.3-5.1) mmol/L Chloride (96-108) mmol/L Carbon Dioxide (22-30) mmol/L Anion Gap (8.0-16.0) BUN (8-23) mg/dL Creatinine (0.6-1.1) mg/dL GFR Calculation Glucose (70-105) mg/dL Calcium (8.6-10.4) mg/dL Total Bilirubin (0.1-1.0) mg/dL AST (<32) U/L ALT (<40) U/L Alkaline Phosphatase (39-117) U/L Total Protein (5.9-8.4) gm/dL Albumin (3.2-5.2) gm/dL Globulin (2.2-3.7) gm/dL Albumin/Globulin Ratio (1.0-2.3) Urine Color [place] Urine Appearance Clear (Clear) Urine pH 5.0 (5.0-9.0) Ur Specific [place] 1.020 (1.000-1.035) Urine Protein TNP Urine Glucose (UA) 100 mg/dl A (Negative) mg/dL Urine Ketones Color interference A (Negative) mg/dL Urine Occult Blood Trace-intact A (Negative) cristian/mcL Urine Nitrate Color interference A (Negative) Urine Bilirubin Negative (Negative) mg/dL Prot Sulfosalicylic Acd Negative (NEGATIVE) mg/dL Urine Urobilinogen Normal mg/dL Ur Leukocyte Esterase Negative (Negative) /ug Urine RBC 0 (0-3) /hpf Urine WBC 3 (0-4) /hpf Ur Squamous Epith Cells 10 H (0-4) /hpf Urine Bacteria None (0) /hpf Ur Culture Indicated? No Urine Opiates Screen None detected Ur Opiates Confirm TNP Ur Oxycodone Screen None detected Urine Methadone Screen None detected Ur Methadone Confirm TNP Ur Barbiturates Screen None detected Ur Barbiturate Confirm TNP Ur Phencyclidine Scrn None detected Urine PCP Confirm TNP Ur Amphetamines Screen Suspect positive A U Benzodiazepines Scrn None detected U Benzodiazepine Confm TNP Urine Cocaine Screen None detected Urine Cocaine Confirm TNP U Cannabinoids Confirm TNP U Marijuana (THC) Screen None detected Ethyl Alcohol (<0.010) gm/dL Discharge Plan Patient/Caregiver Discharge Instructions Pt seen by GREETER/PA only: No Clinical Impression: Seizure Patient Disposition: Xfer As Inpt ([facility]) Follow up with: Humberto Dalton MD [Primary Care Provider] - Prescriptions: No Action omeprazole 40 mg capsule,delayed release(DR/EC) 40 mg PO QDAY RF: 0 gabapentin 300 mg capsule 300 mg PO BID Qty: 60 RF: 0 duloxetine 60 mg capsule,delayed release(DR/EC) 60 mg PO BID Qty: 30 RF: 0 oxybutynin chloride 5 mg tablet 5 mg PO BID RF: 0 trazodone 150 mg tablet See Rx Instructions .ROUTE .COMPLEX RF: 0
[2021-04-26] MEDS ORDERED: LORazepam 2 MG/ML VIAL IV PRN (17:46)
[2021-04-26] MEDS ORDERED: LORazepam 2 MG/ML VIAL ONE (17:48)
[2021-04-26 18:15] LABS: Basophils # (Auto) 0.05 K/mcL (0.00-0.30); Basophils % (Auto) 0.5 % (0.0-2.0); Eosinophils # (Auto) 0.03 K/mcL (0.00-0.70); Eosinophils % (Auto) 0.3 % (0.0-7.0); Hematocrit 38.7 % (34.1-44.9); Hemoglobin 13.2 g/dL (11.2-15.7); Lymphocytes # (Auto) 2.86 K/mcL (1.50-4.80); Lymphocytes % (Auto) 28.3 % (15.5-49.0); Mean Cell Volume 86.8 fL (80.0-100.0); Mean Corpuscular HGB Conc 34.1 g/dL (31.0-36.0); Monocytes # (Auto) 0.87 K/mcL (0.10-0.90); Monocytes % (Auto) 8.6 % (1.0-12.0); Neutrophils % (Auto) 62.3 % (38.0-78.0); Platelet Count 361 K/mcL (140-440); RBC 4.46 M/mcL (3.59-5.38); Red Cell Distribution Width 12.7 % (11.5-14.5); WBC 10.1 K/mcL (4.5-11.0)
[2021-04-26 18:33] LABS: Alcohol, Blood < 10.0 mg/dL; Alcohol,Blood < 0.010 gm/dL (<0.010)
[2021-04-26 18:47] LABS: ALT/SGPT 46 U/L (<40); AST/SGOT 31 U/L (<32); Albumin 4.6 gm/dL (3.2-5.2); Albumin/Globulin Ratio 2.3 (1.0-2.3); Alkaline Phosphatase 78 U/L (39-117); Bilirubin,Total 0.5 mg/dL (0.1-1.0); Blood Urea Nitrogen 5 mg/dL (8-23); Calcium 9.5 mg/dL (8.6-10.4); Carbon Dioxide 12 mmol/L (22-30); Chloride 95 mmol/L (96-108); Glomerular Filtration Rate 92; Glucose 159 mg/dL (70-105)
[2021-04-26] MEDS ORDERED: POTASSIUM CHLORIDE 20 MEQ in DEXTROSE 5% IN WATER 250 ML IV ONE (18:51)
[2021-04-26] MEDS ORDERED: levETIRAcetam 1,000 MG in 0.9 % SODIUM CHLORIDE 100 ML IV ONE (19:41)
[2021-04-26 21:01] LABS: Appearance,Urine Clear (Clear); Bilirubin,Urine Negative (Negative); Color,Urine Orange; Culture Indicated,Urine No; Ketones,Urine Color Interference mg/dL (Negative); Leukocyte Esterase,Urine Negative /ug (Negative); Nitrate,Urine Color Interference (Negative); Sulfosalicylic Acid,Urine Negative (NEGATIVE); Urine Blood Trace-intact ery/mcL (Negative); Urine RBC 0 /hpf (0-3); Urine Squamous Epithelial Cell 10 /hpf (0-4); Urine WBC 3 /hpf (0-4); Urobilinogen,Urine Normal
[2021-04-26 21:09] LABS: Amphetamine Screen,Urine Suspect positive; Barbiturate Screen,Urine None detected; Benzodiazepines Screen,Urine None detected; Cannabinoid Screen,Urine None detected; Cocaine Screen,Urine None detected; Opiate Screen,Urine None detected; Oxycodone, Urine Screen None detected; Phencyclidine Screen,Urine None detected
[2021-04-26] MEDS ORDERED: LACTULOSE 20 GM/30 ML ORAL.SOL PO PRN (22:28)
[2021-04-26] MEDS ORDERED: ONDANSETRON 4 MG/2 ML VIAL IV PRN (22:28)
[2021-04-26] MEDS ORDERED: SENNOSIDES 1 TABLET PO PRN (22:28)
[2021-04-26] MEDS ORDERED: LACTATED RINGERS 1,000 ML IV SCH (22:30)
--- NOTE | 2021-04-26 22:36 | Internal Med History&Physical ---
HPI History of Present Illness Patient information: Note initiated : 04/26/21 at 10:34 pm Service Date, if different from initiated Date: [] Patient: Luz Jara 66 y/o F admitted on for Seizure. Chief Complaint: [Seizure] History of present illness: Ms. Jara is a 66 year old F who has a history of tonic-clonic seizures, months ago, presenting with multiple episodes of tonic- clonic seizures. Patient had episode of tonic-clonic seizures couple months ago at which time CT of the head was performed and no abnormalities were seen. At that time she was found to be severely hyponatremic and he was attributed to be the cause of her seizures. Anyway, she was back to her baseline of health until earlier today at 15 00 when she have acute onset of tonic-clonic seizures while she was watching TV. The seizure was witnessed by her and according to him it lasted for few minutes. She had another seizures episode at 1530 which also lasted a few minutes. According to the , he did not observe any tongue biting or incontinence's. The patient seems to be confused postictally. Due to her symptoms, she was being brought to our ED for further evaluations. She had 2 more episodes of witnessed tonic-clonic seizures in the ED. The at the bedside stated that the patient has not been drinking. He also stated that she has not been using any drugs. Labs was significant for hyponatremia with sodium level 129 as well as hypokalemia with potassium level 2.9. Urine drug screen positive for methamphetamine. Review of Systems ROS unobtainable: due to mental status [facility] PFSH All Active Problems (Updated 04/26/21 @ 22:45 by Nasir Charles MD) Methamphetamine abuse (Acute) Tonic clonic seizures (Acute) Mitral valve prolapse (Chronic) Gastroenteritis (Chronic) Acute vestibular neuronitis (Chronic) Gastroenteritis (Chronic) Acute hypokalemia (Chronic) Fibromyalgia (Chronic) Diverticulitis (Chronic) GERD (gastroesophageal reflux disease) (Chronic) Neck pain (Chronic) Back pain (Chronic) Dementia (Chronic) PNA (pneumonia) (Chronic) Hypercholesterolemia (Chronic) Hypokalemia (Chronic) PTSD (post-traumatic stress disorder) (Chronic) Depressive disorder (Chronic) Migraine (Chronic) Hypertensive disorder (Chronic) Gastric ulcer (Chronic) Joint pain (Chronic) Chronic back pain (Chronic) Vertigo (Chronic) Forgetfulness (Chronic) Chronically ill (Chronic) Depression with anxiety (Chronic) High risk medication use (Chronic) Abnormal mammogram (Chronic) Cervical radiculopathy (Chronic) Alcohol use disorder, mild, in sustained remission, abuse (Acute) Generalized anxiety disorder (Acute) Major depression, recurrent, chronic (Acute) Tobacco use disorder (Acute) Cannabis use disorder, moderate, dependence (Acute) Mood disorder (Acute) Sedative hypnotic or anxiolytic dependence (Acute) PTSD (post-traumatic stress disorder) (Acute) Dawson's esophagus (Acute) Observed seizure-like activity (Acute) Acute hypokalemia (Acute) Acute hyponatremia (Acute) Heart palpitations (Acute) Anxiety (Acute) Acute hyponatremia (Acute) Acute hypokalemia (Acute) Seizure (Acute) Medical History Abnormal mammogram Acute hypokalemia Acute vestibular neuronitis Addiction Back pain Cervical radiculopathy Chronic back pain Chronically ill Dementia Depression with anxiety Depressive disorder Diverticulitis Fibromyalgia Forgetfulness Gastric ulcer Gastroenteritis Gastroenteritis GERD (gastroesophageal reflux disease) High risk medication use Hypercholesterolemia Hypertensive disorder Hypokalemia Joint pain Migraine Mitral valve prolapse Neck pain PNA (pneumonia) PTSD (post-traumatic stress disorder) Substance abuse Vertigo Surgical History History of cholecystectomy History of tonsillectomy and adenoidectomy Family History Sister Dementia Alcohol abuse Drug abuse Father Arthritis Lymphoma Alcohol abuse Drug abuse Mother Arthritis Alcohol abuse Drug abuse Other Cancer Social History marital status: education level: college occupational status: retired smoking status: Former smoker quit date: 02/08/21 alcohol intake frequency: holiday/special occasion only substance use type: former substance user and marijuana additional history: 5 children MEDS/ALLERGIES Home Medications and Allergies Home Medications Medication Instructions Recorded Confirmed Type oxybutynin chloride 5 mg tablet 5 mg PO BID 11/11/20 04/24/21 History omeprazole 40 mg capsule,delayed 40 mg PO QDAY 12/20/20 04/24/21 History release trazodone See Rx Instructions .ROUTE .COMPLEX 03/05/21 04/24/21 History gabapentin 300 mg capsule 300 mg PO BID #60 cap 03/16/21 04/24/21 Rx duloxetine 60 mg capsule,delayed 60 mg PO BID #30 cap 04/19/21 04/24/21 Rx release Allergies Allergy/AdvReac Type Severity Reaction Status Date / Time codeine Allergy Intermediate Itching Verified 04/26/21 17:19 Donepezil Allergy Unknown Unknown Verified 04/26/21 17:19 Sulfa (Sulfonamide AdvReac Intermediate Nausea Verified 04/26/21 17:19 Antibiotics) tape AdvReac Mild Itching Uncoded 11/29/20 13:03 EXAM Constitutional Vitals: Temp Pulse Resp BP Pulse Ox 36.1 C 89 12 130/76 96 04/26/21 17:20 04/26/21 22:11 04/26/21 22:11 04/26/21 22:11 04/26/21 22:11 General appearance: cooperative and no acute distress Head Head exam: Present atraumatic and normocephalic Eye Eye exam: Present EOMI and PERRL ENT ENT exam: Present mucous membranes moist, normal exam and normal external ear exam Additional comments: Oxygen mask in place Neck Neck exam: Present normal inspection; Absent lymphadenopathy, tenderness and thyromegaly Respiratory Respiratory exam: Absent accessory muscle use, respiratory distress and wheezes Cardiovascular Cardiovascular exam: Present normal rate and rhythm; Absent JVD GI/Abdominal GI/Abdominal exam: Present normal bowel sounds and soft; Absent organomegaly and tenderness Extremities Exam Extremities exam: Present full ROM, normal capillary refill and normal inspection; Absent tenderness Neurological Exam Neurological exam: Present altered and CN II-XII intact; Absent alert, motor sensory deficit and oriented X3 Psychiatric Psychiatric exam: Present normal affect and normal mood; Absent anxious and depressed Skin Skin exam: Present dry and intact DATA Data Completed and Pending Labs: Labs from last 24 hours 04/26/21 04/26/21 04/26/21 20:25 20:25 17:40 WBC RBC Hgb Hct MCV MCH MCHC RDW Plt Count MPV Neut % (Auto) Lymph % (Auto) Patrick % (Auto) Eos % (Auto) Baso % (Auto) Lymph # (Auto) Patrick # (Auto) Eos # (Auto) Baso # (Auto) Absolute Neutrophils Sodium Potassium Chloride Carbon Dioxide Anion Gap BUN Creatinine GFR Calculation Glucose Calcium Total Bilirubin AST ALT Alkaline Phosphatase Total Protein Albumin Globulin Albumin/Globulin Ratio Urine Color [place] Urine Appearance Clear Urine pH 5.0 Ur Specific [place] 1.020 Urine Protein TNP Urine Glucose (UA) 100 mg/dl A Urine Ketones Color interference A Urine Occult Blood Trace-intact A Urine Nitrate Color interference A Urine Bilirubin Negative Prot Sulfosalicylic Acd Negative Urine Urobilinogen Normal Ur Leukocyte Esterase Negative Urine RBC 0 Urine WBC 3 Ur Squamous Epith Cells 10 H Urine Bacteria None Ur Culture Indicated? No Urine Opiates Screen None detected Ur Opiates Confirm TNP Ur Oxycodone Screen None detected Urine Methadone Screen None detected Ur Methadone Confirm TNP Ur Barbiturates Screen None detected Ur Barbiturate Confirm TNP Ur Phencyclidine Scrn None detected Urine PCP Confirm TNP Ur Amphetamines Screen Suspect positive A U Amphetamines Confirm Pending U Benzodiazepines Scrn None detected U Benzodiazepine Confm TNP Urine Cocaine Screen None detected Urine Cocaine Confirm TNP U Cannabinoids Confirm TNP U Marijuana (THC) Screen None detected Ethyl Alcohol < 0.010 04/26/21 04/26/21 17:40 17:40 WBC 10.1 RBC 4.46 Hgb 13.2 Hct 38.7 MCV 86.8 MCH 29.6 MCHC 34.1 RDW 12.7 Plt Count 361 MPV 9.0 Neut % (Auto) 62.3 Lymph % (Auto) 28.3 Patrick % (Auto) 8.6 Eos % (Auto) 0.3 Baso % (Auto) 0.5 Lymph # (Auto) 2.86 Patrick # (Auto) 0.87 Eos # (Auto) 0.03 Baso # (Auto) 0.05 Absolute Neutrophils 6.30 Sodium 129 L Potassium 2.9 L* Chloride 95 L Carbon Dioxide 12 L Anion Gap 22.0 H BUN 5 L Creatinine 0.7 GFR Calculation 92 Glucose 159 H Calcium 9.5 Total Bilirubin 0.5 AST 31 ALT 46 H Alkaline Phosphatase 78 Total Protein 6.6 Albumin 4.6 Globulin 2.0 L Albumin/Globulin Ratio 2.3 Urine Color Urine Appearance Urine pH Ur Specific [place] Urine Protein Urine Glucose (UA) Urine Ketones Urine Occult Blood Urine Nitrate Urine Bilirubin Prot Sulfosalicylic Acd Urine Urobilinogen Ur Leukocyte Esterase Urine RBC Urine WBC Ur Squamous Epith Cells Urine Bacteria Ur Culture Indicated? Urine Opiates Screen Ur Opiates Confirm Ur Oxycodone Screen Urine Methadone Screen Ur Methadone Confirm Ur Barbiturates Screen Ur Barbiturate Confirm Ur Phencyclidine Scrn Urine PCP Confirm Ur Amphetamines Screen U Amphetamines Confirm U Benzodiazepines Scrn U Benzodiazepine Confm Urine Cocaine Screen Urine Cocaine Confirm U Cannabinoids Confirm U Marijuana (THC) Screen Ethyl Alcohol A/P Assessment and plan (1) Tonic clonic seizures: Status: Acute (2) Methamphetamine abuse: Status: Acute (3) Acute hyponatremia: Status: Acute (4) Acute hypokalemia: Status: Acute Narrative A/P Narrative: Assessment and Plans: 1. Tonic clonic seizures: DDx of cause of seizures: alcohol vs illicit drug vs intracranial mass vs other metabolic abnormalities Admit to inpatient PCU w/ telemetry NPO with seizure precautions Speech therapy evaluation Neurocheck q4hr Ativan 1mg IV q1hr PRN seizure activities Keppra 1000mg IV q12hr MRI brain w/ w/o contrast in the morning Serum alcohol level Serum prolactin level 2. Acute hyponatremia: Could be secondary to alcoholism (?) IV LR@100cc/hr Repeat CMP in the morning to trend serum sodium level 3. Hypokalemia: s/p potassium replacement in the ED Repeat CMP in the morning to trend serum potassium level and repeat replacement as needed Also check serum Mg level and replace as needed 4. Methamphetamine abuse: Continue to monitor for any associated symptoms GI ppx: Resume oral PPI when patient tolerates oral intake DVT ppx: Lovenox Code status: Full Prognosis: guarded Disposition: inpatient PCU Time Spent With Patient Time: Total time spent is greater than 50% in coordination of care (as documented) at patient's floor/unit and/or counseling patient: Total time spent with greater than 50% in coordination of care (as documented) at patient's floor/unit and/or counseling patient:: 25 - 35 minutes
[2021-04-27 00:23] LABS: ALT/SGPT 44 U/L (<40); AST/SGOT 31 U/L (<32); Albumin/Globulin Ratio 1.8 (1.0-2.3); Alkaline Phosphatase 68 U/L (39-117); Bilirubin,Total 0.4 mg/dL (0.1-1.0); Blood Urea Nitrogen 4 mg/dL (8-23); Calcium 8.4 mg/dL (8.6-10.4); Carbon Dioxide 19 mmol/L (22-30); Chloride 106 mmol/L (96-108); Globulin 2.2 gm/dL (2.2-3.7); Glomerular Filtration Rate 92; Glucose 119 mg/dL (70-105)
[2021-04-27] MEDS ORDERED: SENNOSIDES 1 TABLET PO PRN (00:59)
[2021-04-27] MEDS ORDERED: LORazepam 2 MG/ML VIAL IV PRN ×2 (00:59)
[2021-04-27] MEDS ORDERED: LACTULOSE 20 GM/30 ML ORAL.SOL PO PRN (00:59)
[2021-04-27] MEDS: LACTATED RINGERS 1,000 ML IV SCH ×3 (01:09→20:53)
[2021-04-27] MEDS: ACETAMINOPHEN 650 MG/65 ML BAG IV PRN ×3 (01:30→17:42)
[2021-04-27] MEDS ORDERED: ACETAMINOPHEN 1,000 MG/100 ML BAG IV ONE (01:32)
[2021-04-27] MEDS ORDERED: 0.9 % SODIUM CHLORIDE 10 ML SYRINGE IV SCH (06:00)
[2021-04-27] MEDS: 0.9 % SODIUM CHLORIDE 10 ML SYRINGE IV SCH ×3 (06:18→20:55)
[2021-04-27] MEDS: ONDANSETRON 4 MG/2 ML VIAL IV PRN (07:07)
[2021-04-27 07:52] LABS: Basophils # (Auto) 0.02 K/mcL (0.00-0.30); Basophils % (Auto) 0.2 % (0.0-2.0); Eosinophils # (Auto) 0.02 K/mcL (0.00-0.70); Eosinophils % (Auto) 0.2 % (0.0-7.0); Hematocrit 35.1 % (34.1-44.9); Hemoglobin 11.3 g/dL (11.2-15.7); Lymphocytes # (Auto) 1.65 K/mcL (1.50-4.80); Lymphocytes % (Auto) 18.9 % (15.5-49.0); Mean Cell Volume 91.4 fL (80.0-100.0); Mean Corpuscular HGB Conc 32.2 g/dL (31.0-36.0); Monocytes # (Auto) 0.99 K/mcL (0.10-0.90); Monocytes % (Auto) 11.3 % (1.0-12.0); Neutrophils % (Auto) 69.4 % (38.0-78.0); Platelet Count 270 K/mcL (140-440); RBC 3.84 M/mcL (3.59-5.38); Red Cell Distribution Width 13.2 % (11.5-14.5); WBC 8.7 K/mcL (4.5-11.0)
[2021-04-27 08:18] LABS: ALT/SGPT 45 U/L (<40); AST/SGOT 33 U/L (<32); Albumin 3.5 gm/dL (3.2-5.2); Albumin/Globulin Ratio 1.6 (1.0-2.3); Alkaline Phosphatase 69 U/L (39-117); Bilirubin,Total 0.5 mg/dL (0.1-1.0); Blood Urea Nitrogen 4 mg/dL (8-23); Calcium 8.5 mg/dL (8.6-10.4); Carbon Dioxide 17 mmol/L (22-30); Chloride 109 mmol/L (96-108); Globulin 2.2 gm/dL (2.2-3.7); Glomerular Filtration Rate 92; Glucose 96 mg/dL (70-105)
[2021-04-27] MEDS ORDERED: ENOXAPARIN 40 MG/0.4 ML SYRINGE SQ SCH (09:00)
[2021-04-27] MEDS ORDERED: levETIRAcetam 1,000 MG in 0.9 % SODIUM CHLORIDE 100 ML IV SCH (09:00)
[2021-04-27] MEDS ORDERED: DOCUSATE SODIUM 100 MG CAPSULE PO SCH (09:00)
[2021-04-27] MEDS: ENOXAPARIN 40 MG/0.4 ML SYRINGE SQ SCH (09:14)
[2021-04-27] MEDS: DOCUSATE SODIUM 100 MG CAPSULE PO SCH ×2 (09:27→20:42)
[2021-04-27] MEDS ORDERED: DOCUSATE SODIUM 100 MG CAPSULE PO PRN (11:14)
[2021-04-27] MEDS ORDERED: ONDANSETRON 4 MG ODT TABLET SL PRN (11:21)
--- NOTE | 2021-04-27 11:34 | Internal Med Progress Note ---
SUBJECTIVE Subjective Patient information: Note initiated : 04/27/21 at 11:30 am Service Date, if different from initiated Date: [] Patient: Luz Jara a 66 y/o F admitted on 04/27/21 for Seizure. Chief Complaint: [seizure] Interval history: History of present illness: Ms. Jara is a 66 year old F who has a history of tonic-clonic seizures, months ago, presenting with multiple episodes of tonic-clonic seizures. Patient had episode of tonic-clonic seizures couple months ago at which time CT of the head was performed and no abnormalities were seen. At that time she was found to be severely hyponatremic and he was attributed to be the cause of her seizures. Anyway, she was back to her baseline of health until earlier today at 15 00 when she have acute onset of tonic-clonic seizures while she was watching TV. The seizure was witnessed by her and according to him it lasted for few minutes. She had another seizures episode at 1530 which also lasted a few minutes. According to the , he did not observe any tongue biting or incontinence's. The patient seems to be confused postictally. Due to her symptoms, she was being brought to our ED for further evaluations. She had 2 more episodes of witnessed tonic- clonic seizures in the ED. The at the bedside stated that the patient has not been drinking. He also stated that she has not been using any drugs. Labs was significant for hyponatremia with sodium level 129 as well as hypokalemia with potassium level 2.9. Urine drug screen positive for methamphetamine. 04/27: CoVID Evelia positive. Seizure-free since admission. Passed bedside swallowing evaluation. Patient is c/o mild headache. Denies confusion. Denies nausea or vomiting. Denies SOB. Tolerating room air. Constitutional Vitals: Vital Signs Temp Pulse Resp BP Pulse Ox 36.8 C 80 29 H 158/84 93 04/27/21 08:00 04/27/21 10:02 04/27/21 10:02 04/27/21 10:01 04/27/21 10:02 Period Temp Pulse Resp BP Sys/Argueta Pulse Ox Last 24 Hr 36.1 C-36.9 C 73-124 9-31 107-201/66-112 90-99 Intake and Output 04/26/21 04/27/21 04/27/21 21:59 05:59 13:59 Intake Total 1370 65 Output Total 150 Balance 1370 -85 Weight 74.843 kg 72.892 kg Intake & Output: Intake & Output 04/26/21 04/27/21 04/27/21 21:59 05:59 13:59 Intake Total 1370 65 Output Total 150 Balance 1370 -85 Weight 74.843 kg 72.892 kg Intake: IV 1370 65 Sodium Chloride 0.9% 1,000 ml @ 1000 Wide Open IV .Q0M ONE Rx#: [id number] Potassium Chloride 20 Meq In 260 Dextrose 5% in Water 250 ml @ 130 mls/hr IV ONCE ONE Rx#: [id number] Keppra 1,000 mg In Sodium 110 Chloride 0.9% 100 ml @ 200 mls/ hr IV ONCE ONE Rx#:[id number] Output: Urine Catheter Amount 150 Other: Meal Breakfast Percent of Meal Consumed 100% Feeding Ability Independent Urine Appearance Clear Urine Color Bright Yellow Stool Size Moderate Stool Color Brown Stool Consistency Loose # Voids 1 # of times incontinent of 1 Bowels General appearance: cooperative and no acute distress Head Head exam: Present atraumatic and normocephalic Eye Eye exam: Present EOMI and PERRL ENT ENT exam: Present mucous membranes moist, normal exam and normal external ear exam Neck Neck exam: Present normal inspection; Absent lymphadenopathy, tenderness and thyromegaly Respiratory Respiratory exam: Absent accessory muscle use, respiratory distress and wheezes Cardiovascular Cardiovascular exam: Present normal rate and rhythm; Absent JVD GI/Abdominal GI/Abdominal exam: Present normal bowel sounds and soft; Absent organomegaly and tenderness Extremities Exam Extremities exam: Present full ROM, normal capillary refill and normal inspection; Absent tenderness Neurological Exam Neurological exam: Present alert, CN II-XII intact and oriented X3; Absent motor sensory deficit Psychiatric Psychiatric exam: Present normal affect and normal mood; Absent anxious and depressed Skin Skin exam: Present dry and intact OBJ DATA Labs CBC & Chem 7: 04/27/21 06:03 04/27/21 06:04 Labs: Abnormal Lab Results 04/27/21 04/27/21 04/27/21 22:23 06:04 06:03 [place] # (Auto) 0.99 H Sodium Potassium 3.1 L Chloride 109 H Carbon Dioxide 17 L Anion Gap BUN 4 L Glucose Calcium 8.5 L AST 33 H ALT 45 H Total Protein 5.7 L Globulin Prolactin 62.4 H Urine Glucose (UA) Urine Ketones Urine Occult Blood Urine Nitrate Ur Squamous Epith Cells Ur Amphetamines Screen 04/26/21 04/26/21 04/26/21 22:56 20:25 20:25 [place] # (Auto) Sodium Potassium Chloride Carbon Dioxide 19 L Anion Gap BUN 4 L Glucose 119 H Calcium 8.4 L AST ALT 44 H Total Protein Globulin Prolactin Urine Glucose (UA) 100 mg/dl A Urine Ketones Color interference A Urine Occult Blood Trace-intact A Urine Nitrate Color interference A Ur Squamous Epith Cells 10 H Ur Amphetamines Screen Suspect positive A 04/26/21 17:40 [place] # (Auto) Sodium 129 L Potassium 2.9 L* Chloride 95 L Carbon Dioxide 12 L Anion Gap 22.0 H BUN 5 L Glucose 159 H Calcium AST ALT 46 H Total Protein Globulin 2.0 L Prolactin Urine Glucose (UA) Urine Ketones Urine Occult Blood Urine Nitrate Ur Squamous Epith Cells Ur Amphetamines Screen Meds: Medications Amlodipine Besylate (Amlodipine 5 Mg Tablet) 2.5 mg PO DAILY [facility] Docusate Sodium (Docusate Sodium 100 Mg Capsule) 100 mg PO BID [facility] Last Admin: 04/27/21 09:27 Dose: Not Given Documented by: Duloxetine HCl (Duloxetine 30 Mg Capsule) 60 mg PO BID [facility] Enoxaparin Sodium (Enoxaparin 40 Mg/0.4 Ml Syringe) 40 mg SQ DAILY [facility] Last Admin: 04/27/21 09:14 Dose: 40 mg Documented by: Furosemide (Furosemide 20 Mg Tablet) 20 mg PO QDAY [facility] Gabapentin (Gabapentin 300 Mg Capsule) 300 mg PO BID [facility] Lactated Ringer's (Lactated Ringers) 1,000 mls @ 100 mls/hr IV .Q10H [facility] Last Admin: 04/27/21 01:09 Dose: 100 mls/hr Documented by: Acetaminophen (Ofirmev) 650 mg in 65 mls @ 130 mls/hr IV Q6HP PRN; Protocol PRN Reason: PAIN/FEVER > 101 Last Admin: 04/27/21 10:15 Dose: 130 mls/hr Documented by: Lactulose (Lactulose 20 Gm/30 Ml Oral.Tosin) 10 gm PO DAILYP PRN PRN Reason: Constipation Levetiracetam (Levetiracetam 500 Mg Tablet) 1,000 mg PO BID [facility] Lorazepam (Lorazepam 2 Mg/Ml Vial) 1 mg IV ONCE PRN PRN Reason: Spasms Lorazepam (Lorazepam 2 Mg/Ml Vial) 1 mg IV Q1HP PRN PRN Reason: Seizure Activity Methocarbamol (Methocarbamol 500 Mg Tablet) 1,000 mg PO BID PRN PRN Reason: Muscle Spasm Omeprazole (Omeprazole 20 Mg Capsule) 40 mg PO ACB [facility] Ondansetron HCl (Ondansetron 4 Mg/2 Ml Vial) 4 mg IV Q4HP PRN; Protocol PRN Reason: Nausea And Vomiting Last Admin: 04/27/21 07:07 Dose: 4 mg Documented by: Ondansetron HCl (Ondansetron 4 Mg Odt Tablet) 4 mg SL Q8HP PRN PRN Reason: Nausea And Vomiting Oxybutynin Chloride (Oxybutynin Chloride 5 Mg Tablet) 5 mg PO BID [facility] Oxcarbazepine 300 Mg (Tablet) 1 dose PO BID [facility] Potassium Chloride (Potassium Chloride 10 Meq Tablet) 10 meq PO QAMCC [facility] Senna (Sennosides 1 Tablet) 2 tab PO HSP PRN PRN Reason: Constipation Sodium Chloride (0.9 % Sodium Chloride 10 Ml Syringe) 10 ml IV Q8 [facility] Last Admin: 04/27/21 06:18 Dose: 10 ml Documented by: A/P Assessment and plan (1) Tonic clonic seizures: Status: Acute (2) Methamphetamine abuse: Status: Acute (3) Acute hyponatremia: Status: Acute (4) Acute hypokalemia: Status: Acute (5) COVID: Status: Acute Narrative A/P Narrative: Assessment and Plans: 1. Tonic clonic seizures: DDx of cause of seizures: alcohol vs illicit drug vs intracranial mass vs other metabolic abnormalities Stays in inpatient PCU w/ telemetry Passed bedside swallowing evaluation, start regular diet Neurocheck q4hr Ativan 1mg IV q1hr PRN seizure activities Keppra 1000mg PO q12hr MRI brain w/ w/o contrast in the morning Serum alcohol level Serum prolactin level 2. Acute hyponatremia: RESOLVED Could be secondary to alcoholism (?) Saline lock Repeat CMP in the morning to trend serum sodium level 3. Hypokalemia: s/p potassium replacement in the ED Repeat CMP in the morning to trend serum potassium level and repeat replacement as needed Also check serum Mg level and replace as needed 4. Methamphetamine abuse: Continue to monitor for any associated symptoms 5. CoVID evelia positive: Asymptomatic, tolerating room air, no fever CoVID PCR as comfiratory test. Until then, continue airborne and contact isolation GI ppx: Resume oral PPI when patient tolerates oral intake DVT ppx: Lovenox Code status: Full Prognosis: Stable Disposition: inpatient PCU Time Spent With Patient Time: Total time spent is greater than 50% in coordination of care (as documented) at patient's floor/unit and/or counseling patient: Total time spent with greater than 50% in coordination of care (as documented) at patient's floor/unit and/or counseling patient:: 25 - 35 minutes
[2021-04-27] MEDS ORDERED: POTASSIUM CHLORIDE 20 MEQ TABLET PO ONE (12:30)
[2021-04-27] MEDS ORDERED: DULoxetine 30 MG CAPSULE PO ONE (12:32)
[2021-04-27] MEDS: METHOCARBAMOL 500 MG TABLET PO PRN ×2 (12:41→19:04)
--- NOTE | 2021-04-27 14:43 | Magnetic Resonance Report ---
CLINICAL INFORMATION: Tonic-clonic seizure episodes COMPARISON: None. TECHNIQUE: 3-D SPGR volume, Sagittal T1 FLAIR, axial diffusion ADC, T1 FLAIR, T2 FLAIR propeller, T2 propeller gradient, T1 post Magnevist and coronal T1 FLAIR post Magnevist images were acquired. FINDINGS: The ventricles, sulci, fissures and cisterns are enlarged compatible with mild atrophy slightly more than expected for age. There are no extra-axial fluid collections or mass are appreciated. The signal within the barcenas-white matter of the cerebrum, brainstem and cerebellum is entirely unremarkable. There are no regions of restricted effusion, hemorrhage, edema or abnormal enhancement.Parahippocampal formations are normal. The signal void in intracerebral arteries, extra-axial cranial nerves, pituitary, orbits and paranasal sinuses are all normal. IMPRESSION: Mild atrophy-slightly more than expected for age. No focal lesions Interpreted and Authenticated by: Deep Ramirez 04/27/21
[2021-04-27] MEDS: levETIRAcetam 500 MG TABLET PO SCH (20:53)
[2021-04-27] MEDS: DULoxetine 30 MG CAPSULE PO SCH (20:53)
[2021-04-27] MEDS: OXYBUTYNIN CHLORIDE 5 MG TABLET PO SCH (20:53)
[2021-04-27] MEDS: GABAPENTIN 300 MG CAPSULE PO SCH (20:53)
[2021-04-28] MEDS: ACETAMINOPHEN 650 MG/65 ML BAG IV PRN (00:17)
[2021-04-28] MEDS: LACTATED RINGERS 1,000 ML IV SCH ×2 (00:18→08:22)
[2021-04-28] MEDS: ONDANSETRON 4 MG/2 ML VIAL IV PRN ×2 (00:26→07:55)
[2021-04-28] MEDS: 0.9 % SODIUM CHLORIDE 10 ML SYRINGE IV SCH (05:33)
[2021-04-28] MEDS ORDERED: OMEPRAZOLE 20 MG CAPSULE PO SCH (07:30)
[2021-04-28 07:56] LABS: Basophils # (Auto) 0.04 K/mcL (0.00-0.30); Basophils % (Auto) 0.6 % (0.0-2.0); Eosinophils # (Auto) 0.09 K/mcL (0.00-0.70); Eosinophils % (Auto) 1.3 % (0.0-7.0); Hematocrit 32.8 % (34.1-44.9); Hemoglobin 10.9 g/dL (11.2-15.7); Lymphocytes # (Auto) 1.97 K/mcL (1.50-4.80); Lymphocytes % (Auto) 29.4 % (15.5-49.0); Mean Cell Volume 90.1 fL (80.0-100.0); Mean Corpuscular HGB Conc 33.2 g/dL (31.0-36.0); Mean Platelet Volume 9.3 fL (7.4-10.4); Monocytes # (Auto) 0.56 K/mcL (0.10-0.90); Monocytes % (Auto) 8.4 % (1.0-12.0); Neutrophils % (Auto) 60.3 % (38.0-78.0); Platelet Count 261 K/mcL (140-440); RBC 3.64 M/mcL (3.59-5.38); Red Cell Distribution Width 13.4 % (11.5-14.5); WBC 6.7 K/mcL (4.5-11.0)
[2021-04-28] MEDS ORDERED: POTASSIUM CHLORIDE 10 MEQ TABLET PO SCH (08:00)
[2021-04-28] MEDS: METHOCARBAMOL 500 MG TABLET PO PRN (08:00)
--- NOTE | 2021-04-28 08:16 | Discharge Summary ---
Discharge Provider Provider Patient information: Note initiated : 04/28/21 at 8:13 am Service Date, if different from initiated Date: [] Patient: Luz Jara 66 y/o F admitted on 04/27/21 for Seizure. Chief Complaint: [seizure] Date of admission: 04/27/21 00:31 Discharge date: 04/28/21 Primary care physician: Humberto Dalton MD Consults: 04/26/21 Consult to Physician [CONS] Stat Comment: Consulting Provider: Nasir Charles Reason For Exam: Physician to Consult Discharge Meds Discharge Medications Home Medications oxybutynin chloride 5 mg tablet 5 mg PO BID 11/11/20 [History Confirmed 04/27/21 Last Taken 04/26/21] omeprazole 40 mg capsule,delayed release 40 mg PO QDAY 12/20/20 [History Confirmed 04/27/21 Last Taken 04/26/21] trazodone See Rx Instructions .ROUTE .COMPLEX 03/05/21 [History Confirmed 04/27/21 Last Taken 04/25/21 300] gabapentin 300 mg capsule 300 mg PO BID #60 cap 03/16/21 [Rx Confirmed 04/27/21 Last Taken 04/26/21] duloxetine 60 mg capsule,delayed release 60 mg PO BID #30 cap 04/19/21 [Rx C onfirmed 04/27/21 Last Taken 04/26/21] amlodipine 2.5 mg PO QDAY 04/27/21 [History Confirmed 04/27/21 Last Taken 04/26/21] docusate sodium 100 mg PO QDAY PRN 04/27/21 [History Confirmed 04/27/21 Last Taken 04/23/21] furosemide 20 mg PO QDAY 04/27/21 [History Confirmed 04/27/21 Last Taken 04/26/21] methocarbamol 1,000 mg PO BID PRN 04/27/21 [History Confirmed 04/27/21 Last Taken 04/26/21] ondansetron HCl 4 mg PO Q8 PRN 04/27/21 [History Confirmed 04/27/21 Last Taken Unknown] oxcarbazepine 300 mg PO BID 04/27/21 [History Confirmed 04/27/21 Last Taken 04/26/21] potassium chloride 10 meq PO QDAY 04/27/21 [History Confirmed 04/27/21 Last Taken 04/26/21] levetiracetam 1,000 mg PO BID #60 tab 04/28/21 [Rx Last Taken Unknown] COURSE Hospital Course Hospital course: Patient was admitted on April 27, 2021 for seizure x2 at the day of admission at home and x2 in the ER. Keppra and Ativan as needed for seizure activities were started for the patient's. MRI of the head with and without contrast were performed the following day and no intracranial abnormalities were seen. Patient stayed seizure-free during her course of hospitalizations after leaving the ER. Patient has reached clinical stability by April 28 and the decision was made to discharge patient home with Keppra prescribed to her. Follow-up appointment with PCP in 2 weeks made for the patient and neurologist referral from the PCP should be strongly considered. All questions were answered prior to patient being physically discharged. Discharge diagnosis: seizure Time Spent with Patient Time attestation: Total time spent providing and/or coordinating discharge services: Patient was admitted on April 27, 2021 for seizure x2 at the day of admission at home and x2 in the ER. Keppra and Ativan as needed for seizure activities were started for the patient's. MRI of the head with and without contrast were performed the following day and no intracranial abnormalities were seen. Patient stayed seizure-free during her course of hospitalizations after leaving the ER. Patient has reached clinical stability by April 28 and the decision was made to discharge patient home with Keppra prescribed to her. Follow-up appointment with PCP in 2 weeks made for the patient and neurologist referral from the PCP should be strongly considered. All questions were answered prior to patient being physically discharged. EXAM Constitutional Vitals: Temp Pulse Resp BP Pulse Ox 36.6 C 73 12 157/87 97 04/28/21 04:01 04/28/21 06:02 04/28/21 06:02 04/28/21 06:02 04/28/21 06:02 General appearance: cooperative and no acute distress Head Head exam: Present atraumatic and normocephalic Eye Eye exam: Present EOMI and PERRL ENT ENT exam: Present mucous membranes moist, normal exam and normal external ear exam Neck Neck exam: Present normal inspection; Absent lymphadenopathy, tenderness and thyromegaly Respiratory Respiratory exam: Absent accessory muscle use, respiratory distress and wheezes Cardiovascular Cardiovascular exam: Present normal rate and rhythm; Absent JVD GI/Abdominal GI/Abdominal exam: Present normal bowel sounds and soft; Absent organomegaly and tenderness Extremities Exam Extremities exam: Present full ROM, normal capillary refill and normal inspection; Absent tenderness Neurological Exam Neurological exam: Present alert, CN II-XII intact and oriented X3; Absent motor sensory deficit Psychiatric Psychiatric exam: Present normal affect and normal mood; Absent anxious and depressed Skin Skin exam: Present dry and intact Discharge Data Data Completed and Pending Labs on day of discharge: Labs from last 24 hours 04/28/21 04/28/21 04/28/21 05:50 05:50 05:50 WBC 6.7 RBC 3.64 Hgb 10.9 L Hct 32.8 L MCV 90.1 MCH 29.9 MCHC 33.2 RDW 13.4 Plt Count 261 MPV 9.3 Neut % (Auto) 60.3 Lymph % (Auto) 29.4 Oliver % (Auto) 8.4 Eos % (Auto) 1.3 Baso % (Auto) 0.6 Lymph # (Auto) 1.97 Oliver # (Auto) 0.56 Eos # (Auto) 0.09 Baso # (Auto) 0.04 Absolute Neutrophils 4.03 Sodium Pending Potassium Pending Chloride Pending Carbon Dioxide Pending Anion Gap Pending BUN Pending Creatinine Pending GFR Calculation Pending Glucose Pending Calcium Pending Magnesium Pending Total Bilirubin Pending AST Pending ALT Pending Alkaline Phosphatase Pending Total Protein Pending Albumin Pending Globulin Pending Albumin/Globulin Ratio Pending 04/27/21 06:04 WBC RBC Hgb Hct MCV MCH MCHC RDW Plt Count MPV Neut % (Auto) Lymph % (Auto) Oliver % (Auto) Eos % (Auto) Baso % (Auto) Lymph # (Auto) Oliver # (Auto) Eos # (Auto) Baso # (Auto) Absolute Neutrophils Sodium 140 Potassium 3.1 L Chloride 109 H Carbon Dioxide 17 L Anion Gap 14.0 BUN 4 L Creatinine 0.7 GFR Calculation 92 Glucose 96 Calcium 8.5 L Magnesium Total Bilirubin 0.5 AST 33 H ALT 45 H Alkaline Phosphatase 69 Total Protein 5.7 L Albumin 3.5 Globulin 2.2 Albumin/Globulin Ratio 1.6 Discharge Plan Patient/Caregiver Discharge Instructions Activity: increase activity as tolerated Diet: Regular Diet Prescriptions: New levetiracetam 500 mg Tablet 1,000 mg PO BID Qty: 60 RF: 0 Continued omeprazole 40 mg capsule,delayed release(DR/EC) 40 mg PO QDAY RF: 0 gabapentin 300 mg capsule 300 mg PO BID Qty: 60 RF: 0 duloxetine 60 mg capsule,delayed release(DR/EC) 60 mg PO BID Qty: 30 RF: 0 oxybutynin chloride 5 mg tablet 5 mg PO BID RF: 0 trazodone 150 mg tablet See Rx Instructions .ROUTE .COMPLEX RF: 0 methocarbamol 500 mg tablet 1,000 mg PO BID PRN (Reason: Muscle Spasm) RF: 0 ondansetron HCl 4 mg tablet 4 mg PO Q8 PRN (Reason: Nausea And Vomiting) RF: 0 amlodipine 2.5 mg tablet 2.5 mg PO QDAY RF: 0 potassium chloride 10 mEq tablet extended release 10 meq PO QDAY RF: 0 oxcarbazepine 300 mg tablet 300 mg PO BID RF: 0 docusate sodium 100 mg Capsule 100 mg PO QDAY PRN (Reason: Constipation) RF: 0 furosemide 20 mg tablet 20 mg PO QDAY RF: 0 Follow Up Plan Follow up with: Humberto Dalton MD [Primary Care Provider] - Patient Disposition: Home, Self-Care Rehab Potential: Good I certify that the patient requires SNF services: No Overall status at discharge: patient is back to baseline Discharge Orders: Discharge Order (Routine); Ordered 04/28/21 Ordered By: Nasir Charles
[2021-04-28] MEDS: levETIRAcetam 500 MG TABLET PO SCH (08:36)
[2021-04-28] MEDS: GABAPENTIN 300 MG CAPSULE PO SCH (08:36)
[2021-04-28] MEDS: OXYBUTYNIN CHLORIDE 5 MG TABLET PO SCH (08:36)
[2021-04-28] MEDS: DOCUSATE SODIUM 100 MG CAPSULE PO SCH (08:36)
[2021-04-28] MEDS: DULoxetine 30 MG CAPSULE PO SCH (08:36)
[2021-04-28] MEDS: ENOXAPARIN 40 MG/0.4 ML SYRINGE SQ SCH (08:37)
[2021-04-28 08:40] LABS: ALT/SGPT 39 U/L (<40); AST/SGOT 20 U/L (<32); Albumin 3.2 gm/dL (3.2-5.2); Albumin/Globulin Ratio 1.4 (1.0-2.3); Alkaline Phosphatase 66 U/L (39-117); Bilirubin,Total 0.4 mg/dL (0.1-1.0); Blood Urea Nitrogen 4 mg/dL (8-23); Calcium 8.2 mg/dL (8.6-10.4); Carbon Dioxide 23 mmol/L (22-30); Chloride 102 mmol/L (96-108); Globulin 2.3 gm/dL (2.2-3.7); Glomerular Filtration Rate 96; Glucose 89 mg/dL (70-105)
[2021-04-28] MEDS ORDERED: amLODIPine 5 MG TABLET PO SCH (09:00)
[2021-04-28] MEDS ORDERED: FUROSEMIDE 20 MG TABLET PO SCH (09:00)
== END 2021-04-28 09:53 | disposition home or self-care (01) | DRG 100 ==
LOC: ED 17:17 → ICU 04-27 00:10
PROVIDERS: ADMIT Internal Medicine; ATTEND Internal Medicine